=== PATIENT | female | born 1955 | race Caucasian/White ===

== ENCOUNTER 2016-12-22 14:10 | Emergency (ER) | payer MEDICARE, MEDICAID ==
--- NOTE | 2016-12-22 14:12 | EDM.PDOC ---
ED HPI GENERAL MEDICAL PROBLEM - General Chief Complaint: Abdominal Pain Stated Complaint: [id number] BOWEL BLOCKAGE Time Seen by Provider: 12/22/16 14:12 Source of Information: Reports: Patient, RN, RN Notes Reviewed History Limitations: Reports: No Limitations - History of Present Illness INITIAL COMMENTS - FREE TEXT/NARRATIVE: Arrives from home by POV with c/o constipation with no "normal" BM for 5 weeks. Pt states it has been several days since she has had any stool out at all. Denies vomiting, but has had a little nausea and some mild cramping. Denies fever or chills. 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 Treatments, Other Medication(s) - Related Data Allergies Allergy/AdvReac Type Severity Reaction Status Date / Time No Known Allergies Allergy Verified 12/22/16 14:16 Home Meds: Home Meds Brimonidine/Timolol [Combigan 0.2%/0.5% Ophth Soln] 1 drop EYEBOTH BID 12/22/16 [History] FLUoxetine [PROzac] 20 mg PO DAILY 12/22/16 [History] Levothyroxine Sodium [Levoxyl] 100 mcg PO 12/22/16 [History] QUEtiapine [SEROquel] 300 mg PO BEDTIME 12/22/16 [History] Simvastatin [Zocor] 40 mg PO BEDTIME 12/22/16 [History] Vitamin E 400 unit PO DAILY 12/22/16 [History] carBAMazepine [Tegretol] 200 mg PO 12/22/16 [History] risperiDONE [Risperdal] 50 mg IM ASDIRECTED 12/22/16 [History] risperiDONE [risperiDONE] 2 mg PO BEDTIME 12/22/16 [History] Past Medical History HEENT History: Reports: Impaired Vision Psychiatric History: Reports: Hallucinations, Psychosis, Schizophrenia Social & Family History - Family History Family Medical History: Noncontributory - Living Situation & Occupation Living situation: Reports: Single, Alone (with intermittent healthcare technician) ED ROS GENERAL - Review of Systems Review Of Systems: ROS reveals no pertinent complaints other than HPI. ED EXAM, GI/ABD - Physical Exam Exam: See Below Exam Limited By: No Limitations General Appearance: Alert, WD/WN, No Apparent Distress Head: Atraumatic, Normocephalic Neck: Normal Inspection Respiratory/Chest: No Respiratory Distress, Lungs Clear, Normal Breath Sounds, No Accessory Muscle Use, Chest Non-Tender Cardiovascular: Regular Rate, Rhythm GI/Abdominal Exam: Normal Bowel Sounds, Soft, Non-Tender, No Distention, No Abnormal Bruit, Pelvis Stable (Female) Exam: Deferred Rectal (Female) Exam: Deferred Back Exam: Normal Inspection Extremities: Normal Inspection Neurological: Alert, Oriented, CN II-XII Intact, Normal Cognition, Normal Gait, No Motor/Sensory Deficits Psychiatric: Normal Mood Skin Exam: Warm, Dry, Intact, Normal Color, No Rash Course - Vital Signs Last Recorded V/S: Last Vital Signs Temp 36.2 C 12/22/16 18:58 Pulse 81 12/22/16 18:58 Resp 16 12/22/16 18:58 BP 141/66 H 12/22/16 18:58 Pulse Ox 100 12/22/16 18:58 - Orders/Labs/Meds Orders: Active Orders 24 hr Category Date Time Status Enema [RC] ASDIRECTED Care 12/22/16 15:35 Active Meds: Medications Discontinued Medications Generic Name Dose Route Start Last Admin Trade Name Freq PRN Reason Stop Dose Admin Magnesium Citrate 150 ml 12/22/16 15:35 12/22/16 15:50 Citrate Of Magnesia PO 12/22/16 15:36 150 ml ONETIME ONE Administration Departure - Departure Time of Disposition: 16:53 Disposition: Home, Self-Care 01 Condition: Good Clinical Impression: Fecal impaction in rectum Constipation Qualifiers: Constipation type: unspecified constipation type Qualified Code(s): K59.00 - Constipation, unspecified - Discharge Information Instructions: Constipation, Adult, [id number] Referrals: Luis Lester MD [Primary Care Provider] - Forms: ED Department Discharge Additional Instructions: Follow up in clinic this week for recheck by your doctor. Return to ER if worse at any time. - My Orders Last 24 Hours: My Active Orders 12/22/16 15:35 Enema [RC] ASDIRECTED - Assessment/Plan Last 24 Hours: My Active Orders 12/22/16 15:35 Enema [RC] ASDIRECTED
--- NOTE | 2016-12-22 15:27 | CR ---
CLINICAL HISTORY: 61-year-old female with clinical constipation (5 weeks). INTERPRETATION: Flat and upright films of the abdomen including lower chest (x3) confirm stool concentrated in the re ctosigmoid colon but no evidence of mechanical bowel obstruction proximally. Dense calcification late rally, on the right, that may represent gallstone (appendicolith or enterolith in a Meckel's divertic ulum differential considerations). Ultrasound please. AP lumbar spine and pelvis and hips unremarkable. No foreign body, abdominal soft tissue mass or free subdiaphragmatic air. Lung bases are clear.
[2016-12-22] MEDS ORDERED: Magnesium Citrate Solution 296 ML Bottle PO ONE (15:35)
[2016-12-22 18:59] VITALS: BP 141/66
== END 2016-12-22 18:58 | disposition home or self-care (01) ==
LOC: DL.ED 14:10
DX: K56.41 Fecal impaction (principal); H54.7 Unspecified visual loss; Z79.899 Other long term (current) drug therapy
CPT/HCPCS: 74020; 99283; A9270

== ENCOUNTER → 2017-01-30 | Day surgery (SDC) | payer MEDICARE, MEDICAID ==
[~2017-01-30] MED LIST: Dextrose 5%-0.45% NaCl 1,000 ML IV SCH; Midazolam 1 MG/ML 2 ML SDV ONE; Sodium Chloride 0.9% 10 ML Syringe FLUSH PRN; fentaNYL 100 MCG/2 ML SDV ONE
[2017-01-30 06:50] VITALS: BP 109/73
== END ==
LOC: DL.ENDO 06:28
PROVIDERS: ATTEND Internal Medicine Gastroenterology
DX: Z53.8 Procedure and treatment not carried out for other reasons (principal)

== ENCOUNTER 2017-02-05 07:06 | Day surgery (SDC) | payer MEDICARE, MEDICAID ==
[2017-02-05] MEDS ORDERED: fentaNYL 100 MCG/2 ML SDV IV ONE ×3 (07:07→08:19)
[2017-02-05] MEDS ORDERED: Midazolam 1 MG/ML 2 ML SDV IV ONE ×5 (07:07→08:26)
--- NOTE | 2017-02-05 09:44 | OR ---
DATE: 02/05/2017 PROCEDURE: Total colonoscopy. INSTRUMENT USED: PCF-H180AL Olympus video colonoscope. PREMEDICATIONS: Fentanyl 100 mcg intravenous, Versed 3 mg intravenous. Nasal O2 cannula. The procedure was done under pulse oximetry, BP recording, and research nutritionist. INDICATION: The patient with progressive constipation. Colonoscopic examination is done for detection of any polypoid lesions and removal, endoscopic hemostasis therapy if needed. DESCRIPTION OF PROCEDURE: Initial rectal exam showed external hemorrhoidal tags. Rigid anoscopy was normal. The colonoscope was passed up to the cecal area. Photographs were taken. The examination was compromised in a few areas especially in the right colon due to the presence of adherent fecal material that could not be aspirated clear. No bleeding was noted from any of the visualized areas at the commencement of the examination. No stricture. No vascular ectasia. No large isolated ulcerations seen. No evidence of diffuse inflammatory bowel disease in the form of friability, contact bleeding, or ulcerations. No polyp or tumor mass identified. The colon was found to be extremely tortuous and redundant. No bleeding was noted from any of the visualized areas at the completion of examination. Probing the proximal sides of folds and flexures, using adequate distention and clearing up the stool material, withdrawal of the scope was made, cecum to rectum time over 6 minutes. IMPRESSION: External hemorrhoids. The patient tolerated the procedure well. [facility] /[id number]
[2017-02-05 13:24] VITALS: BP 122/69
== END 2017-02-05 10:53 | disposition home or self-care (01) ==
LOC: DL.ENDO 07:06
PROVIDERS: ATTEND Internal Medicine Gastroenterology
DX: K64.4 Residual hemorrhoidal skin tags (principal); I10 Essential (primary) hypertension; E03.9 Hypothyroidism, unspecified; E78.5 Hyperlipidemia, unspecified; E66.9 Obesity, unspecified; R73.9 Hyperglycemia, unspecified; Z98.890 Other specified postprocedural states; Z98.51 Tubal ligation status; Z68.25 Body mass index [BMI] 25.0-25.9, adult
CPT/HCPCS: 45378; J2250; J3010; J7042

== ENCOUNTER 2017-12-15 21:02 | Emergency (ER) | payer MEDICARE, MEDICAID ==
[2017-12-15 21:06] VITALS: BP 99/66
[2017-12-15 21:58] LABS: ANION GAP 10.4; CHLORIDE,CL 97 mmol/L (101-111); SODIUM,NA 130 mmol/L (135-145)
--- NOTE | 2017-12-16 00:46 | EDM.PDOC ---
ED HPI GENERAL MEDICAL PROBLEM - General Chief Complaint: General Stated Complaint: UNKNOWN Time Seen by Provider: 12/15/17 21:40 Source of Information: Reports: Patient History Limitations: Reports: No Limitations - History of Present Illness INITIAL COMMENTS - FREE TEXT/NARRATIVE: This 62 yo female patient was brought to the ED due to increased abdominal pain and distension. The patient reports she has not had a bowel movement for 1 1/2 weeks. The patient reports she has had similar episodes in the past. Onset: Gradual Duration: Week(s):, Constant, Getting Worse Location: Reports: Abdomen Quality: Reports: Ache, Dull Severity: Moderate Improves with: Reports: None Worsens with: Reports: None Context: Reports: Other Associated Symptoms: Reports: No Other Symptoms Abdomen Pain Score (Numeric/FACES): 7 - Related Data Allergies Allergy/AdvReac Type Severity Reaction Status Date / Time No Known Allergies Allergy Verified 12/15/17 21:21 Home Meds: Home Meds Brimonidine/Timolol [Combigan 0.2%/0.5% Ophth Soln] 1 drop EYEBOTH BID 12/22/16 [History] FLUoxetine [PROzac] 20 mg PO DAILY 12/22/16 [History] Levothyroxine Sodium [Levoxyl] 100 mcg PO DAILY 12/22/16 [History] QUEtiapine [SEROquel] 300 mg PO BEDTIME 12/22/16 [History] Simvastatin [Zocor] 40 mg PO BEDTIME 12/22/16 [History] Vitamin E 400 unit PO DAILY 12/22/16 [History] carBAMazepine [Tegretol] 200 mg PO QID 12/22/16 [History] risperiDONE 2 mg PO BEDTIME 12/22/16 [History] risperiDONE [Risperdal] 50 mg IM ASDIRECTED 12/22/16 [History] Docusate Sodium [Colace] 100 mg PO BID PRN 01/21/17 [History] Lactulose [Constulose] 1 dose PO ASDIRECTED PRN 12/15/17 [History] Past Medical History HEENT History: Reports: Impaired Vision, Other (See Below) Other HEENT History: WEARS CORRECTIVE LENSES Cardiovascular History: Reports: High Cholesterol, Hypertension Respiratory History: Reports: None Gastrointestinal History: Reports: Chronic Constipation Genitourinary History: Reports: None PROFESSOR OF BIOLOGY History: Reports: None Neurological History: Reports: Seizure Psychiatric History: Reports: Hallucinations, Psychosis, Schizophrenia Other Psychiatric History: PARANOIA, MAJOR PSYCHIATRIC ILLNESS Endocrine/Metabolic History: Reports: Hypothyroidism Hematologic History: Reports: None Immunologic History: Reports: None Oncologic (Cancer) History: Reports: None Dermatologic History: Reports: None - Infectious Disease History Infectious Disease History: Reports: None - Past Surgical History Head Surgeries/Procedures: Reports: None Cardiovascular Surgical History: Reports: None Respiratory Surgical History: Reports: None GI Surgical History: Reports: None Female Surgical History: Reports: Tubal Ligation Endocrine Surgical History: Reports: None Neurological Surgical History: Reports: None Musculoskeletal Surgical History: Reports: Other (See Below) Other Musculoskeletal Surgeries/Procedures:: foot surgery Oncologic Surgical History: Reports: None Dermatological Surgical History: Reports: None Social & Family History - Family History Family Medical History: Noncontributory Oncologic: Reports: Bone - Tobacco Use Smoking Status *Q: Never Smoker Second Hand Smoke Exposure: No - Caffeine Use Caffeine Use: Reports: Soda - Recreational Drug Use Recreational Drug Use: No - Living Situation & Occupation Living situation: Reports: Single, 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 ED EXAM, GENERAL - Physical Exam Exam: See Below Exam Limited By: No Limitations General Appearance: Alert, WD/WN, Moderate Distress Eye Exam: Bilateral Eye: EOMI, Normal Inspection, PERRL Ears: Normal External Exam, Normal Canal, Hearing Grossly Normal, Normal TMs Nose: Normal Inspection, Normal Mucosa, No Blood Throat/Mouth: Normal Inspection, Normal Lips, Normal Teeth, Normal Gums, Normal Oropharynx, Normal Voice, No Airway Compromise Head: Atraumatic, Normocephalic Neck: Normal Inspection, Supple, Non-Tender, Full Range of Motion Respiratory/Chest: No Respiratory Distress, Lungs Clear, Normal Breath Sounds, No Accessory Muscle Use, Chest Non-Tender Cardiovascular: Normal Peripheral Pulses, Regular Rate, Rhythm, No Edema, No Gallop, No JVD, No Murmur, No Rub GI/Abdominal: Distended, Guarding, Tender (Female) Exam: Deferred Rectal (Female) Exam: Deferred Back Exam: Normal Inspection, Full Range of Motion, NT Extremities: Normal Inspection, Normal Range of Motion, Non-Tender, Normal Capillary Refill, No Pedal Edema Neurological: Alert, Oriented, CN II-XII Intact, Normal Cognition, Normal Gait, Normal Reflexes, No Motor/Sensory Deficits Psychiatric: Normal Affect, Normal Mood Skin Exam: Warm, Dry, Intact, Normal Color, No Rash Lymphatic: No Adenopathy Course - Vital Signs Last Recorded V/S: Last Vital Signs Temp 37.0 C 12/15/17 21:05 Pulse 62 12/15/17 21:05 Resp 15 12/15/17 21:05 BP 99/66 12/15/17 21:05 Pulse Ox 98 12/15/17 21:05 - Orders/Labs/Meds Orders: Active Orders 24 hr Category Date Time Status EKG Documentation Completion [RC] URGENT Care 12/15/17 21:24 Active Enema [RC] ASDIRECTED Care 12/15/17 23:11 Active Abdomen 2V AP Flat Upright [CR] Urgent Exams 12/15/17 21:23 Taken Labs: Laboratory Tests 12/15/17 12/15/17 Range/Units 21:32 21:32 WBC 6.0 (5.0-10.0) 10^3/uL RBC 3.64 L (4.2-5.4) 10^6/uL Hgb 11.7 L (12.0-16.0) g/dL Hct 34.5 L (37.0-47.0) % MCV 94.8 (80-100) fL MCH 32.1 (27.0-34.0) pg MCHC 33.9 (33.0-35.0) g/dL Plt Count 223 (150-450) 10^3/uL Neut % (Auto) 58.5 (42.2-75.2) % Lymph % (Auto) 27.3 (20.5-50.1) % [place] % (Auto) 12.1 H (2-8) % Eos % (Auto) 1.8 (1.0-3.0) % Baso % (Auto) 0.3 (0.0-1.0) % Sodium 130 L (135-145) mmol/L Potassium 3.4 L (3.6-5.0) mmol/L Chloride 97 L (101-111) mmol/L Carbon Dioxide 26.0 (21.0-31.0) mmol/L Anion Gap 10.4 BUN 8 (7-18) mg/dL Creatinine 0.5 L (0.6-1.3) mg/dL Est Cr Clr Drug Dosing 92.27 mL/min Estimated GFR (MDRD) > 60 BUN/Creatinine Ratio 16.00 Glucose 119 H (74-105) mg/dL Calcium 8.6 (8.4-10.2) mg/dl Total Bilirubin 0.4 (0.2-1.0) mg/dL AST 21 (10-42) IU/L ALT 19 (10-60) IU/L Alkaline Phosphatase 137 H (42-121) IU/L Troponin I < 0.02 (0.00-0.02) ng/ml Total Protein 6.4 L (6.7-8.2) g/dl Albumin 3.5 (3.2-5.5) g/dl Globulin 2.9 Albumin/Globulin Ratio 1.21 Departure - Departure Time of Disposition: 00:39 Disposition: Home, Self-Care 01 Condition: Fair Clinical Impression: Constipation Qualifiers: Constipation type: unspecified constipation type Qualified Code(s): K59.00 - Constipation, unspecified - Discharge Information *PRESCRIPTION DRUG MONITORING PROGRAM REVIEWED*: Not Applicable *COPY OF PRESCRIPTION DRUG MONITORING REPORT IN PATIENT [place]: Not Applicable Instructions: Constipation, Adult Referrals: PCP,Unobtain [Primary Care Provider] - Forms: ED Department Discharge Care Plan Goals: The patient was advised of the examination, lab and x-ray results during the visit. The patient was given enemas with good results during the visit. The patient was encouraged to continue with laxatives over the next week. If the patient has any additional symptoms or concerns, the patient should follow-up with her primary care facility or return to the emergency department. - My Orders Last 24 Hours: My Active Orders 12/15/17 21:23 Abdomen 2V AP Flat Upright [CR] Urgent 12/15/17 21:24 EKG Documentation Completion [RC] URGENT 12/15/17 23:11 Enema [RC] ASDIRECTED - Assessment/Plan Last 24 Hours: My Active Orders 12/15/17 21:23 Abdomen 2V AP Flat Upright [CR] Urgent 12/15/17 21:24 EKG Documentation Completion [RC] URGENT 12/15/17 23:11 Enema [RC] ASDIRECTED
== END 2017-12-16 01:21 | disposition home or self-care (01) ==
LOC: DL.ED 21:02
DX: K59.00 Constipation, unspecified (principal); I10 Essential (primary) hypertension; E03.9 Hypothyroidism, unspecified; Z79.899 Other long term (current) drug therapy
CPT/HCPCS: 36415; 74019; 80053; 84484; 85025; 93005; 93010; 99283; 99285

== ENCOUNTER 2020-10-03 10:14 | Emergency (ER) | payer MEDICARE, MEDICAID | END 2020-10-03 14:00 | disposition left against medical advice (07) | LOC: DL.ED 10:14 | DX: Z53.21 Procedure and treatment not carried out due to patient leaving prior to being seen by health care provider (principal) ==

== ENCOUNTER 2020-10-03 14:45 | Emergency (ER) | payer MEDICARE, MEDICAID | END 2020-10-03 15:55 | disposition left against medical advice (07) | LOC: DL.ED 14:45 | DX: Z53.21 Procedure and treatment not carried out due to patient leaving prior to being seen by health care provider (principal) ==

== ENCOUNTER 2022-11-14 13:00 | Observation (INO) | payer MEDICARE, MEDICAID ==
[2022-11-14 15:45] LABS: HEMATOCRIT 36.5 % (37.0-47.0); HEMOGLOBIN 12.4 g/dL (12.0-16.0); MEAN CORPUSCULAR HEMOGLOBIN 31.6 pg (27.0-34.0); MEAN CORPUSCULAR VOLUME 92.9 fL (80-100); RED BLOOD CELL COUNT 3.93 10^6/uL (4.2-5.4); WHITE BLOOD CELL COUNT,WBC 13.1 10^3/uL (5.0-10.0)
[2022-11-14 16:02] LABS: CALCIUM 8.8 mg/dL (8.5-10.1); CREATININE 0.66 mg/dL (0.55-1.02); EST CRCL DRUG DOSING (CG) 69.36 mL/min
[2022-11-14] MEDS ORDERED: Acetaminophen/oxyCODONE 325-5 MG Tab PO ONE (17:11)
[2022-11-14] MEDS: Sertraline 50 MG Tab PO SCH (20:34)
[2022-11-14] MEDS: Melatonin 3 MG Tab PO SCH (20:34)
[2022-11-14] MEDS: Heparin Sodium 5,000 Units/ML Vial SUBCUT SCH (20:34)
[2022-11-14] MEDS: Simvastatin 40 MG Tab PO SCH (20:34)
[2022-11-14] MEDS: CARBAMAZEPINE 200 MG PO SCH (20:37)
[2022-11-14] MEDS: Acetaminophen 325 MG Tab PO SCH (20:37)
[2022-11-14] MEDS ORDERED: CLOZAPINE 100 MG PO SCH (21:00)
[2022-11-14] MEDS: Acetaminophen/oxyCODONE 325-5 MG Tab PO PRN (22:12)
[2022-11-15] MEDS: Acetaminophen 325 MG Tab PO SCH ×2 (07:59→19:54)
[2022-11-15] MEDS ORDERED: CLOZAPINE 100 MG PO SCH (08:00)
[2022-11-15] MEDS: Levothyroxine 100 MCG Tab PO SCH (08:01)
[2022-11-15] MEDS: Heparin Sodium 5,000 Units/ML Vial SUBCUT SCH ×3 (08:01→20:46)
[2022-11-15] MEDS: Vitamin E (dl-alpha-tocopherol acetate) 400 Unit Cap PO SCH (08:01)
[2022-11-15] MEDS: CLOZAPINE 100 MG PO SCH ×2 (08:03→19:56)
[2022-11-15] MEDS: CARBAMAZEPINE 200 MG PO SCH ×4 (08:04→19:56)
[2022-11-15] MEDS ORDERED: Vitamin E (dl-alpha-tocopherol acetate) 400 Unit Cap PO SCH (09:00)
[2022-11-15] MEDS: Acetaminophen/oxyCODONE 325-5 MG Tab PO PRN ×4 (11:07→23:51)
[2022-11-15 13:20] LABS: HEMATOCRIT 35.3 % (37.0-47.0); HEMOGLOBIN 11.9 g/dL (12.0-16.0); MEAN CORPUSCULAR HEMOGLOBIN 32.1 pg (27.0-34.0); MEAN CORPUSCULAR HGB CONC 33.7 g/dL (33.0-35.0); MEAN CORPUSCULAR VOLUME 95.1 fL (80-100); RED BLOOD CELL COUNT 3.71 10^6/uL (4.2-5.4); WHITE BLOOD CELL COUNT,WBC 5.3 10^3/uL (5.0-10.0)
[2022-11-15 13:36] LABS: ANION GAP 12.1 mEq/L (7-13); CALCIUM 8.5 mg/dL (8.5-10.1); CREATININE 0.75 mg/dL (0.55-1.02); EST CRCL DRUG DOSING (CG) 61.04 mL/min; POTASSIUM,K 4.1 mmol/L (3.5-5.1)
[2022-11-15] MEDS: Melatonin 3 MG Tab PO SCH ×2 (19:54→20:46)
[2022-11-15] MEDS: Simvastatin 40 MG Tab PO SCH ×2 (19:54→20:46)
[2022-11-15] MEDS: Sertraline 50 MG Tab PO SCH ×2 (19:54→20:46)
[2022-11-16] MEDS: Acetaminophen/oxyCODONE 325-5 MG Tab PO PRN ×4 (04:50→21:01)
[2022-11-16] MEDS: Acetaminophen 325 MG Tab PO SCH ×2 (08:24→21:00)
[2022-11-16] MEDS: Vitamin E (dl-alpha-tocopherol acetate) 400 Unit Cap PO SCH (08:25)
[2022-11-16] MEDS: Levothyroxine 100 MCG Tab PO SCH (08:25)
[2022-11-16] MEDS: Heparin Sodium 5,000 Units/ML Vial SUBCUT SCH ×2 (08:25→20:59)
[2022-11-16] MEDS: CARBAMAZEPINE 200 MG PO SCH ×4 (08:26→21:03)
[2022-11-16] MEDS: CLOZAPINE 100 MG PO SCH ×2 (08:26→21:02)
[2022-11-16] MEDS ORDERED: traMADol 50 MG Tab PO PRN (08:55)
[2022-11-16] MEDS ORDERED: Morphine 2 MG/ML SYRINGE IVPUSH PRN (08:56)
[2022-11-16] MEDS ORDERED: LORazepam 2 MG/ML SDV IVPUSH PRN (08:57)
[2022-11-16] MEDS ORDERED: Melatonin 3 MG Tab PO PRN (08:57)
[2022-11-16] MEDS ORDERED: Sodium Chloride 0.9% 100 ML IV SCH (09:00)
[2022-11-16] MEDS ORDERED: Polyethylene Glycol 3350 Powder 17 GM Packet PO PRN (09:55)
[2022-11-16] MEDS: Sennosides/Docusate Sodium 50-8.6 MG Tab PO SCH (12:53)
[2022-11-16] MEDS: Simvastatin 40 MG Tab PO SCH (21:00)
[2022-11-16] MEDS: Sertraline 50 MG Tab PO SCH (21:00)
[2022-11-16] MEDS: Melatonin 3 MG Tab PO SCH (21:00)
[2022-11-17 06:07] LABS: BASOPHILS PERCENT AUTO 0.3 % (0.0-1.0); EOSINOPHILS PERCENT AUTO 2.5 % (1.0-3.0); HEMATOCRIT 33.3 % (37.0-47.0); HEMOGLOBIN 11.1 g/dL (12.0-16.0); LYMPHOCYTES PERCENT AUTO 19.3 % (20.5-50.1); MEAN CORPUSCULAR HGB CONC 33.3 g/dL (33.0-35.0); MONOCYTES PERCENT AUTO 14.1 % (2-8); NEUTROPHILS PERCENT AUTO 63.8 % (42.2-75.2); PLATELET COUNT,PLT 246 10^3/uL (150-450); RED BLOOD CELL COUNT 3.47 10^6/uL (4.2-5.4); WHITE BLOOD CELL COUNT,WBC 6.1 10^3/uL (5.0-10.0)
[2022-11-17] MEDS: Acetaminophen/oxyCODONE 325-5 MG Tab PO PRN (06:15)
[2022-11-17 06:30] LABS: A/G RATIO 0.68; ALBUMIN 2.5 g/dL (3.4-5.0); ANION GAP 10.3 mEq/L (7-13); BILIRUBIN TOTAL 0.2 mg/dL (0.2-1.0); BUN/CREATININE RATIO 18.6 (No establ ref range); CALCIUM 8.3 mg/dL (8.5-10.1); CREATININE 0.59 mg/dL (0.55-1.02); EST CRCL DRUG DOSING (CG) 77.59 mL/min; POTASSIUM,K 4.3 mmol/L (3.5-5.1); PROTEIN TOTAL,TP 6.2 g/dL (6.4-8.2)
[2022-11-17 07:38] VITALS: BP 100/59; PULSE 77
[2022-11-17] MEDS: CLOZAPINE 100 MG PO SCH (08:35)
[2022-11-17] MEDS: CARBAMAZEPINE 200 MG PO SCH ×2 (08:36→10:50)
[2022-11-17] MEDS: Acetaminophen 325 MG Tab PO SCH (08:38)
[2022-11-17] MEDS: Levothyroxine 100 MCG Tab PO SCH (08:38)
[2022-11-17] MEDS: Sennosides/Docusate Sodium 50-8.6 MG Tab PO SCH (08:38)
[2022-11-17] MEDS: Vitamin E (dl-alpha-tocopherol acetate) 400 Unit Cap PO SCH (08:38)
[2022-11-17] MEDS: Heparin Sodium 5,000 Units/ML Vial SUBCUT SCH (08:40)
[2022-11-17] MEDS ORDERED: Docusate Sodium 100 MG Cap PO PRN (09:31)
[2022-11-17] MEDS ORDERED: Lactulose Soln 10 GM/15 ML 30 ML UD Cup PO PRN (09:32)
[2022-11-17] MEDS ORDERED: Naloxone 2 MG/2 ML Syringe IVPUSH PRN (09:33)
[2022-11-17] MEDS ORDERED: HYDROmorphone 1 MG/ML Syringe IVPUSH PRN (09:33)
[2022-11-21] MEDS ORDERED: Non-Formulary Medication 1 Each (Alendronate [Fosamax] 70 MG/75 ML Bottle) PO SCH (16:00)
== END 2022-11-17 13:25 ==
LOC: DL.ED 13:00 → UNDOADMOB 14:56 → DL.MS 14:56
PROVIDERS: ADMIT Hospitalist; ATTEND Hospitalist
DX: S42.351A Displaced comminuted fracture of shaft of humerus, right arm, initial encounter for closed fracture (principal); E03.9 Hypothyroidism, unspecified; M81.0 Age-related osteoporosis without current pathological fracture; G40.909 Epilepsy, unspecified, not intractable, without status epilepticus; E78.00 Pure hypercholesterolemia, unspecified; I10 Essential (primary) hypertension; F20.9 Schizophrenia, unspecified; K59.09 Other constipation; Z79.890 Hormone replacement therapy; Z79.899 Other long term (current) drug therapy; W01.0XXA Fall on same level from slipping, tripping and stumbling without subsequent striking against object, initial encounter; Y92.009 Unspecified place in unspecified non-institutional (private) residence as the place of occurrence of the external cause
CPT/HCPCS: 36415; 73060; 80048; 80053; 85025; 85027; 96372; 96374; 99284; A9270; G0378; J1644; J2270; 29105; 99285

== ENCOUNTER 2023-10-11 23:15 | Emergency (ER) | payer MEDICARE, MEDICAID ==
[2023-10-11 23:31] VITALS: BP 110/70; PULSE 60
[2023-10-11] MEDS: Sodium Chloride 0.9% 1,000 ML IV ONE (23:38)
[2023-10-11 23:49] LABS: BASOPHILS PERCENT AUTO 0.3 % (0.0-1.0); EOSINOPHILS PERCENT AUTO 1.7 % (1.0-3.0); HEMOGLOBIN 10.9 g/dL (12.0-16.0); MEAN CORPUSCULAR HEMOGLOBIN 31.9 pg (27.0-34.0); MEAN CORPUSCULAR HGB CONC 34.1 g/dL (33.0-35.0); MEAN CORPUSCULAR VOLUME 93.6 fL (80-100); MONOCYTES PERCENT AUTO 11.2 % (2-8); NEUTROPHILS PERCENT AUTO 60.8 % (42.2-75.2); PLATELET COUNT,PLT 246 10^3/uL (150-450); RED BLOOD CELL COUNT 3.42 10^6/uL (4.2-5.4); WHITE BLOOD CELL COUNT,WBC 5.8 10^3/uL (5.0-10.0)
[2023-10-12 00:20] LABS: ANION GAP 10.9 mEq/L (7-13); BLOOD UREA NITROGEN,BUN 11 mg/dL (7-18); CALCIUM 7.8 mg/dL (8.5-10.1); CARBON DIOXIDE,CO2 25 mmol/L (21-32); CHLORIDE,CL 100 mmol/L (98-107); CREATININE 0.64 mg/dL (0.55-1.02); GLUCOSE RANDOM 136 mg/dL (70-99); POTASSIUM,K 2.9 mmol/L (3.5-5.1); SODIUM,NA 133 mmol/L (136-145); TSH ULTRASENSITIVE 6.18 uIU/mL (0.36-3.74)
[2023-10-12 00:21] LABS: ESTIMATED GFR 97 mL/min (>=60)
[2023-10-12] MEDS: Potassium Chloride 10 MEQ Tab.ER PO ONE (02:16)
== END 2023-10-12 02:50 | disposition home or self-care (01) ==
LOC: DL.ED 23:15
DX: D64.9 Anemia, unspecified (principal); E03.9 Hypothyroidism, unspecified; E87.8 Other disorders of electrolyte and fluid balance, not elsewhere classified; I10 Essential (primary) hypertension; E78.00 Pure hypercholesterolemia, unspecified; Z79.899 Other long term (current) drug therapy
CPT/HCPCS: 36415; 80048; 84443; 85025; 96360; 99284; A9270; J7030